=== PATIENT | female | born 1955 | race Caucasian/White ===

== ENCOUNTER → 2016-10-12 | Outpatient (CLI) | payer SELFPAY ==
--- NOTE | 2016-10-13 13:44 | CT ---
EXAM DATE: 10/12/16 PATIENT'S AGE: 61 Patient: YUMI CHAVES Facility: [place], [place] Site . Site : 1955 Study: CT Chest [id number]/10/2017 2:01:48 PM Ordering Physician: Edward Latham Final Report: INDICATION: Vocal cord paralysis. TECHNIQUE: CT chest was acquired without and with 75 cc Isovue 370 IV contrast. COMPARISON: None. FINDINGS: Cardiovascular structures: Heart size is normal. Thoracic aorta and main pulmonary artery are normal in caliber. Mediastinum and brain: No mass or adenopathy. Lungs and pleura: There is a 0.5 cm pleural-based nodular density in the lateral left lung base visualized on image 72. Remainder of the lungs are clear. No effusions. Chest wall and axilla: No mass or adenopathy. Upper abdomen: Unremarkable. Bones: No significant findings. IMPRESSION: Solitary 0.5 cm pleural-based nodule left lower lobe of doubtful significance. Otherwise unremarkable chest CT. No findings to explain vocal cord paralysis. Dictated by Elder Tobias MD @ Oct 13 2016 9:12AM (Electronic Signature) Report Signed by Proxy and Original Signed Document filed in the Medical Record. MTDD
--- NOTE | 2016-10-14 10:44 | CT ---
EXAM DATE: 10/12/16 PATIENT'S AGE: 61 Patient: YUMI CHAVES Facility: [facility] Site . Site : 1955 Study: CT-ST Neck [id number]/10/2017 2:01:02 PM Ordering Physician: Edward Latham Final Report: Indication: Left-sided vocal cord paralysis. Technique: CT soft tissue neck with IV contrast was acquired in the usual fashion. No comparisons. Findings: The cervical airway is widely patent. 2 mm focus of decreased attenuation left lobe of thyroid gland may represent presence of a tiny incidental cyst or adenoma. The parotid and submandibular glands are within normal limits. No convincing evidence of suspicious pathologically enlarged lymph nodes. No convincing evidence of suspicious enhancing mass is within the soft tissues of the neck. There is mild medial deviation of the left arytenoid which can be seen in vocal cord paralysis. Mild degenerative changes of cervical spine. Impression: 1. Medial deviation of the left arytenoid which can be seen in vocal cord paralysis. 2. No convincing evidence suspicious masses within the soft tissues of the neck. Dictated by Santhosh Delgado MD @ Oct 13 2016 4:55PM Signed by: Santhosh Delgado MD @10/13/2016 4:57:39 PM (Electronic Signature) Report Signed by Proxy and Original Signed Document filed in the Medical Record. [facility]
--- NOTE | 2016-10-14 15:42 | CT ---
EXAM DATE: 10/12/16 PATIENT'S AGE: 61 Patient: YUMI CHAVES Facility: [facility] Site . Site : 1955 Study: CT-Head [id number]/10/2017 2:03:08 PM Ordering Physician: Edward Latham Final Report: Indication: Left vocal cord paralysis. Technique: Noncontrast high-resolution axial and coronal CT of the temporal bones is provided. No comparisons. Findings: There is soft tissue debris within the right external auditory canal likely representing presence of cerumen. The left external auditory canal appears within normal limits. The mastoid air cells bilateral pneumatized and aerated. The ossicular chains bilaterally are within normal limits. The cochlea and semicircular canals appear within normal limits. Grossly the hypoglossal canal and visualized portion of the jugular foramen appear within normal limits bilaterally. Impression: 1. Soft tissue density material within the right external auditory canal likely representing presence of cerumen. 2. Otherwise unremarkable CT of the temporal bones as far as visualized. Dictated by Santhosh Delgado MD @ Oct 14 2016 3:10PM Signed by: Santhosh Delgado MD @10/14/2016 3:12:02 PM (Electronic Signature) Report Signed by Proxy and Original Signed Document filed in the Medical Record. [facility]
== END ==
LOC: MW.DI 08:44
PROVIDERS: ATTEND Otolaryngology
DX: J38.00 Paralysis of vocal cords and larynx, unspecified (principal); R49.0 Dysphonia
CPT/HCPCS: 36415; 70482; 70482-26; 70492; 70492-26; 71270; 71270-26; 82565; 84520